=== PATIENT | female | born 1995 | race Two or more races ===

== ENCOUNTER 2023-07-06 10:19 | Emergency (ER) | payer OTHER ==
[~2023-07-06] VITALS: Ht 170.2 cm; Wt 116.6 kg
[2023-07-06 10:59] VITALS: BP 112/92; PULSE 79; RESP 18; TEMP 98.4; O2SAT 96
[2023-07-06 11:09] LABS: Urine Epithelial Cast None Seen /hpf (<5)
[2023-07-06 11:22] LABS: Urine Bacteria FEW /hpf (None Seen); Urine Blood Negative /uL (Negative); Urine Clarity HAZY (Clear); Urine Color Yellow (Yellow); Urine Mucus FEW (None Seen); Urine Protein, UAD TRACE (Negative); Urine Specific Gravity 1.025 (1.001-1.035); Urine Urobilinogen Normal (Negative); Urine WBC 5 /hpf (0 - 5); Urine pH 6.5 (5.0-8.0)
[2023-07-06] MEDS ORDERED: NITR-52 PO (12:50)
== END 2023-07-06 12:57 | disposition home or self-care (01) ==
LOC: ER 10:19
DX: O23.41 Unspecified infection of urinary tract in pregnancy, first trimester (principal); R10.2 Pelvic and perineal pain; N39.0 Urinary tract infection, site not specified; Z3A.12 12 weeks gestation of pregnancy
CPT/HCPCS: 36415; 76801; 81001; 84702